=== PATIENT | female | born 1945 | race African-American/Black ===

== ENCOUNTER 2016-08-11 14:37 | Emergency (ER) | payer OTHER ==
[2016-08-11 14:48] VITALS: BP 140/99; TEMP 97.2; BMI 29.9
[2016-08-11 15:40] VITALS: PULSE 63
--- NOTE | 2016-08-11 15:54 | PDOC ---
History of Present Illness - General Chief Complaint: Pain, Acute Stated Complaint: SWOLLEN RT LEG/ KNEE PAIN Time Seen by Provider: 08/11/16 14:57 - History of Present Illness Initial Comments: 08/11/16 15:47 CHIEF COMPLAINT: Right knee pain HISTORY OF PRESENT ILLNESS: 71-year-old female with history of hypertension, diabetes, hyperlipidemia, status post Whipple procedure, hip and shoulder replacements, appendectomy, presents to fast track with swelling and pain to right knee and fifth morning. Patient states she saw Dr. Vaz a couple weeks ago and was diagnosed with "fluid in my leg.", She has been taking Aleve for the last 2 days without relief. She denies any chest pain, shortness of breath, palpitations. 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 Denies any recent trauma or injury to the knee. No recent travel or sick contacts. PAST MEDICAL HISTORY: Denies past medical history FAMILY HISTORY: Denies SOCIAL HISTORY: Former smoker, [id number] history. Has not smoked in 16 years. Denies alcohol, illicit drug use. SURGICAL HISTORY: Denies ALLERGIES: Iodine contrast REVIEW OF SYSTEMS General/Constitutional: Denies fever or chills. Denies weakness, weight change. HEENT: Denies change in vision. Denies ear pain or discharge. Denies sore throat. Cardiovascular: Denies chest pain or shortness of breath. Respiratory: Denies cough, wheezing, or hemoptysis. Gastrointestinal: Denies nausea, vomiting, diarrhea or constipation. Denies rectal bleeding. Genitourinary: Denies dysuria, frequency, or change in urination. Musculoskeletal: Right knee swelling and pain. Skin and breasts: Denies rash or easy bruising. Neurologic: Denies headache, vertigo, loss of consciousness, or loss of sensation. PHYSICAL EXAM General Appearance: Well-appearing, appropriately dressed. No apparent distress , no intoxication. HEENT: EOMI, PERRLA, normal ENT inspection, normal voice, TMs normal, pharynx normal. No conjunctival pallor. No photophobia, scleral icterus. Neck: Supple. Trachea midline. No tenderness, rigidity, carotid bruit, stridor , lymphadenopathy, or thyromegaly. Respiratory/Chest: Lungs CTAB. No shortness of breath, chest tenderness, respiratory distress, accessory muscle use. No crackles, rales, rhonchi, stridor , wheezing, dullness Cardiovascular: RRR. S1, S2. No JVD, murmur, bradycardia, tachycardia. Vascular Pulses: Dorsalis-Pedis (R): 2+, Dorsalis-Pedis (L): 2+ Gastrointestinal/Abdominal: Normal bowel sounds. Abdomen soft, non-distended. No tenderness or rebound tenderness. No organomegaly, pulsatile mass, guarding , hernia, hepatomegaly, splenomegaly. Lymphatic: No adenopathy, tenderness. Musculoskeletal/Extremities: Swollen right knee, nontender on palpation. Negative Homans sign. No calf tenderness. Normal inspection. FROM of all extremities, normal capillary refill. Pelvis Stable. No CVA tenderness. No tenderness to extremities, pedal edema, swelling, erythema or deformity. Integumentary: Appropriate color, dry, warm. 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 Fully oriented, alert. Appropriate mood/affect. Motor strength 5/5. No appreciable EOM palsy, facial droop or sensory deficit. Past History - Past Medical History Allergies/Adverse Reactions: Allergies Allergy/AdvReac Type Severity Reaction Status Date / Time Iodinated Contrast Media - Allergy Intermediate Hives Verified 10/13/15 18:18 Oral and Home Medications: Ambulatory Orders Amlodipine Besylate [Norvasc] 10 mg PO DAILY 09/03/11 Lipase/Protease/Amylase [Creon 20 EC Capsule] 2 tab PO TID 09/03/11 Metformin HCl [Glucophage] 850 mg PO BID 09/03/11 Albuterol Sulfate [Proair Hfa -] 1 - 2 inh PO PRN PRN 04/01/13 Metoprolol Tartrate [Lopressor -] 100 mg PO DAILY 04/01/13 Potassium Chloride [Micro-K] 10 meq PO DAILY 04/01/13 Simvastatin [Zocor -] 10 mg PO HS 04/01/13 Vit C/Echin Purp/Herb11 [Vitamin C-Echinacea 500 mg Tab] 1 tab PO DAILY Polyethylene Glycol 3350 [Miralax 255 gm Btl -] 17 gm PO UTDICT #1 bottle Psyllium Husk (with Sugar) [Metamucil Packet] 1 each PO BID #0 packet 04/02/13 Ibuprofen [Motrin -] 800 mg PO PRN PRN 04/24/13 Diclofenac Sodium 25 mg PO TID #21 tablet. 01/10/15 Diclofenac Sodium 50 mg PO BID #14 tablet. 08/11/16 Anemia: No Asthma: No Cancer: No Cardiac Disorders: No CVA: No COPD: No CHF: No Dementia: No Diabetes: Yes (NIDDM) GI Disorders: Yes (PANCREATIC MASS) Disorders: No HTN: Yes Hypercholesterolemia: Yes Liver Disease: No Psychiatric Problems: Yes (DEPRESSION.) Seizures: No Thyroid Disease: No - Surgical History Abdominal Surgery: Yes (WHIPPLE PROCEDURE) Appendectomy: No Cholecystectomy: No Orthopedic Surgery: Yes (left shoulder and r hip, implant) - Psycho/Social/Smoking Cessation Hx Anxiety: No Suicidal Ideation: No Smoking Status: Yes Smoking History: Former smoker Have you smoked in the past 12 months: No Number of Cigarettes Smoked Daily: 0 If you are a former smoker, when did you quit?: 2000 Information on smoking cessation initiated: No Hx Alcohol Use: No (2) Drug/Substance Use Hx: No Substance Use Type: Alcohol Hx Substance Use Treatment: No *Physical Exam - Vital Signs Last Vital Signs Temp Pulse Resp BP Pulse Ox 97.2 F L 63 20 140/99 96 08/11/16 14:45 08/11/16 15:40 08/11/16 14:45 08/11/16 14:45 08/11/16 14:45 Medical Decision Making - Medical Decision Making 08/11/16 15:52 71-year-old female with history of hypertension, diabetes, hyperlipidemia, status post Whipple procedure, hip and shoulder replacements, appendectomy, presents to fast track with swelling and pain to right knee and fifth morning. DVT considered but unlikely given stable VS, absence of tenderness to affected leg, an recent negative US study. Will manage pain and have patient f/u with ortho on Saturday. -Diclofenac 50 mg BID x 7 days Advised patient to take medication as prescribed and follow up with Dr. Vaz next week. Advised patient of signs and symptoms for return to ED. Patient verbalized understanding and agrees to plan. *DC/Admit/Observation/Transfer Diagnosis at time of Disposition: Knee pain Qualifiers: Laterality: right Chronicity: chronic Qualified Code(s): M25.561 - Pain in right knee; G89.29 - Other chronic pain - Discharge Dispostion Disposition: HOME Condition at time of disposition: Stable Admit: No - Prescriptions Prescriptions: Diclofenac Sodium 50 mg PO BID #14 tablet.dr - Referrals Referrals: Jessica Graham [Primary Care Provider] - Teo Vaz MD [Staff Physician] - - Patient Instructions Printed Discharge Instructions: DI for Knee Pain Additional Instructions: Based take medication as prescribed and follow-up with Dr. Vaz on Saturday. If you develop any chest pain, shortness of breath, palpitations, fever, nausea, vomiting, diarrhea, or any new or worsening symptoms, please return to the
[2016-08-11] MEDS ORDERED: KETOROLAC TROMETHAMINE 30 MG/1 ML VIAL IM ONE (15:57)
[2016-08-11] MEDS ORDERED: KETOROLAC TROMETHAMINE 30 MG/1 ML VIAL ONE (16:02)
== END 2016-08-11 16:11 | disposition home or self-care (01) ==
LOC: JERFT 14:37
PROC: 3E0233Z Introduction of Anti-inflammatory into Muscle, Percutaneous Approach (ICD-10-PCS; principal; 2016-08-11)
DX: M25.561 Pain in right knee (principal); G89.29 Other chronic pain; I10 Essential (primary) hypertension; E11.9 Type 2 diabetes mellitus without complications; Z79.84 Long term (current) use of oral hypoglycemic drugs; E78.00 Pure hypercholesterolemia, unspecified; F32.9 Major depressive disorder, single episode, unspecified
CPT/HCPCS: 96372; 99281-25

== ENCOUNTER → 2016-10-26 | Emergency (ER) | payer OTHER ==
[~2016-10-26] MED LIST: ACETAMINOPHEN 1000 MG/100 ML VIAL (NON FORMULARY) IVPB ONE; ACETAMINOPHEN INJECTION 100 ML IVPB ONE; CEPHALEXIN MONOHYDRATE 250 MG CAPSULE (FP) ONE; CEPHALEXIN MONOHYDRATE 500 MG CAPSULE (UD) PO ONE; METHOCARBAMOL 500 MG TABLET ONE; METHOCARBAMOL 500 MG TABLET PO ONE; methylPREDNISolone NA SUCC 125 MG/2 ML VIAL IVPB ONE; methylPREDNISolone NA SUCC 125 MG/2 ML VIAL ONE; morphine CARPU-JECT 4 MG/1 ML DISP.SYRIN IVPUSH ONE; morphine CARPU-JECT 4 MG/1 ML DISP.SYRIN ONE
[2016-10-26 12:46] VITALS: BMI 29.2
--- NOTE | 2016-10-26 15:01 | PDOC ---
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 No trauma, strenuous activity. Patient states that she has been experiencing constant lower abdominal pain, left lower quadrant greater than the right lower quadrant. She describes her symptoms as a discomfort with a rated 8/10 in severity when exacerbated. She notes that her discomfort is worse when lying flat and mildly alleviated when standing. Her discomfort is not exacerbated when eating meals. She took Ibuprofen which did not provide much relief. She also note abdominal pain wraps around her bilateral lower back and notes intermittent sensations of "pins and needles" Her pain does not radiate to her extremities. No unsteady gait, saddle anesthesia. She also admits to loss of appetite and admits that after a long hiatus from occasionally drinking, she started drinking 2 cans of beer recently - [employer]. She denies nausea, vomiting, diarrhea, dysuria, hematuria, urinary frequency and urgency, flank pain. She denies fever, chills, diaphoresis , generalized weakness. She denies chest pain, shortness of breath, cough Allergies: Iodinated Contrast Media- Oral and Intravenously (Rash) Past Surgical History: Whipple Procedure. Appendectomy. Hip/Shoulder replacements. Social History: Former smoker. No EtOH and recreational drug use. Primary Care Physician: Dr. Jessica Graham <Karissa Rowe - Last Filed: 10/26/16 15:17> - General History Source: Patient Exam Limitations: No Limitations <Shahrzad Centeno - Last Filed: 10/28/16 01:06> - General Chief Complaint: Pain Stated Complaint: PAIN Time Seen by Provider: 10/26/16 14:28 Past History <Karissa Rowe - Last Filed: 10/26/16 15:17> - Past Medical History Anemia: No Asthma: No Cancer: No Cardiac Disorders: No CVA: No COPD: No CHF: No Dementia: No Diabetes: Yes (NIDDM) GI Disorders: Yes (PANCREATIC MASS) Disorders: No HTN: Yes Hypercholesterolemia: Yes Liver Disease: No Psychiatric Problems: Yes (DEPRESSION.) Seizures: No Thyroid Disease: No - Surgical History Abdominal Surgery: Yes (WHIPPLE PROCEDURE) Appendectomy: Yes Cholecystectomy: No Orthopedic Surgery: Yes (left shoulder and r hip, implant) - Psycho/Social/Smoking Cessation Hx Anxiety: No Suicidal Ideation: No Smoking Status: Yes Smoking History: Never smoked Have you smoked in the past 12 months: No Number of Cigarettes Smoked Daily: 0 If you are a former smoker, when did you quit?: 2000 Information on smoking cessation initiated: No Hx Alcohol Use: No Drug/Substance Use Hx: No Substance Use Type: Alcohol Hx Substance Use Treatment: No <Shahrzad Centeno - Last Filed: 10/28/16 01:06> - Past Medical History Allergies/Adverse Reactions: Allergies Allergy/AdvReac Type Severity Reaction Status Date / Time Iodinated Contrast Media - Allergy Intermediate Hives Verified 10/26/16 12:42 Oral and morphine Allergy Intermediate Swelling Verified 10/26/16 21:03 Home Medications: Ambulatory Orders Amlodipine Besylate [Norvasc] 10 mg PO DAILY 09/03/11 Lipase/Protease/Amylase [Creon 20 EC Capsule] 2 tab PO TID 09/03/11 Metformin HCl [Glucophage] 850 mg PO BID 09/03/11 Albuterol Sulfate [Proair Hfa -] 1 - 2 inh PO PRN PRN 04/01/13 Metoprolol Tartrate [Lopressor -] 100 mg PO DAILY 04/01/13 Potassium Chloride [Micro-K] 10 meq PO DAILY 04/01/13 Simvastatin [Zocor -] 10 mg PO HS 04/01/13 Vit C/Echin Purp/Herb11 [Vitamin C-Echinacea 500 mg Tab] 1 tab PO DAILY Polyethylene Glycol 3350 [Miralax 255 gm Btl -] 17 gm PO UTDICT #1 bottle Psyllium Husk (with Sugar) [Metamucil Packet] 1 each PO BID #0 packet 04/02/13 Ibuprofen [Motrin -] 800 mg PO PRN PRN 04/24/13 Cephalexin [Keflex] 500 mg PO BID #14 capsule 10/26/16 Review of Systems - Review of Systems Comments:: 10/26/16 15:17 GENERAL/CONSTITUTIONAL: No: fever, chills, weakness, loss of appetite. HEAD, EYES, EARS, NOSE AND THROAT: No: change in vision, ear pain, discharge, sore throat, throat swelling. CARDIOVASCULAR: No: chest pain, lightheadedness, palpitations, syncope RESPIRATORY: No: cough, shortness of breath, wheezing, hemoptysis, stridor. GASTROINTESTINAL: Yes: Lower abdominal pain. No: nausea, vomiting, abdominal cramping, diarrhea, rectal bleeding, constipation. GENITOURINARY: No: dysuria, hematuria, frequency, urgency, flank pain. MUSCULOSKELETAL: No: back pain, neck pain, joint pain, muscle swelling or pain SKIN AND BREASTS: No: lesions, pallor, rash or easy bruising. NEUROLOGIC: Yes: Intermittent lower back pins and needles sensations. No: headache, vertigo, weakness ENDOCRINE: No: unexplained weight gain or loss HEMATOLOGIC/LYMPHATIC: No: anemia, easy bleeding, swelling nodes <Karissa Rowe - Last Filed: 10/26/16 15:17> *Physical Exam - Vital Signs Last Vital Signs Temp Pulse Resp BP Pulse Ox 98.0 F 85 18 157/106 100 10/26/16 12:43 10/26/16 12:43 10/26/16 12:43 10/26/16 12:43 10/26/16 12:43 - Physical Exam Comments: 10/26/16 15:17 GENERAL: The patient is in no acute distress. HEAD: Normal with no signs of trauma. EYES: PERRLA, EOMI, sclera anicteric, conjunctiva clear. ENT: Ears normal, nares patent, oropharynx clear without exudates. Moist mucous membranes. NECK: Normal range of motion, supple without lymphadenopathy, JVD, or masses. LUNGS: Breath sounds equal, clear to auscultation bilaterally. No wheezes, and no crackles. HEART:Regular rate and rhythm, normal S1 and S2 without murmur, rub or gallop. ABDOMEN: Soft, bilateral lower abdominal reproducible discomfort to palpation left greater than right. Normoactive bowel sounds. No guarding, no rebound. EXTREMITIES: Normal range of motion, no edema. No clubbing or cyanosis. No erythema, or tenderness. NEUROLOGICAL: Cranial nerves II through XII grossly intact. Normal speech. No focal neurological deficits. MUSCULOSKELETAL: Back non-tender to palpation, no CVA tenderness SKIN: Warm, Dry, normal turgor, no rashes or lesions noted. <JaeKarissa - Last Filed: 10/26/16 15:17> - Vital Signs Last Vital Signs Temp Pulse Resp BP Pulse Ox 98.0 F 85 18 157/106 100 10/26/16 12:43 10/26/16 12:43 10/26/16 12:43 10/26/16 12:43 10/26/16 12:43 <Shahrzad Centeno - Last Filed: 10/28/16 01:06> ED Treatment Course - LABORATORY CBC & Chemistry Diagram: 10/26/16 15:36 10/26/16 18:48 - RADIOLOGY Radiology Studies Ordered: Category Date Time Status ABDOMEN & PELVIS CT W/O CONTR [CT] Stat CT Scan 10/26/16 14:59 Ordered <Shahrzad Centeno - Last Filed: 10/28/16 01:06> Medical Decision Making - Medical Decision Making 10/26/16 15:01 A portion of this note was documented by scribe services under my direction. I have reviewed the details of the note, within reason, and agree with the documentation with the following case summary and management plan written by me. Nursing documentation reviewed and incorporated into medical decision making 10/26/16 15:32 This pt is a 71 yo M h/o HTN, HLD, DM, pancreatic mass s/p Whipple procedure ( 10 years ago) Presents to the ER with > 1 week of lower abdominal pain which radiates to the Back She notes that her pain began last weekend, she thought it would go away but it has not No direct trauma No heavy lifting (that she can recall) She denies fevers or chills She has not had symptoms like this in the past No bowel or bladder incontinence She can not tell if her pain is starting in her lower abdomen or her back she notes that pain is worse with movement of any kind No diarrhea No dysuria On examination Lower abdominal tenderness, left > right No midline tenderness Right CVA tenderness Straight leg raise negative DD: Intra-abdominal pathology (diverticulitis, colitis, abscess), kidney stone, pyelonephtitis, musculoskeletal pain Will do: Labs CT non contrast (pt has allergy to contrast) Morphine for pain Pt signed out to Dr. Haywood <Shahrzad Centeno - Last Filed: 10/28/16 01:06> *DC/Admit/Observation/Transfer - Attestations Scribe Attestion: 10/26/16 15:17 Documentation prepared by Karissa Rowe, acting as biomedical engineering aide for Shahrzad Centeno MD. <Karissa Rowe - Last Filed: 10/26/16 15:17> <Shahrzad Centeno - Last Filed: 10/28/16 01:06> Diagnosis at time of Disposition: Cystitis - Discharge Dispostion Disposition: HOME Condition at time of disposition: Stable - Prescriptions Prescriptions: Cephalexin [Keflex] 500 mg PO BID #14 capsule - Referrals Referrals: Jessica Graham [Primary Care Provider] - - Patient Instructions Printed Discharge Instructions: DI for Acute Cystitis Additional Instructions: Please take 650 mg tylenol every 4 hours as needed for pain. Take 500 mg keflex every 12 hours for the next week. Please make an appointment with your doctor.
[2016-10-26 16:34] LABS: BASOPHIL 0.8 % (0-2.0); EOSINOPHIL 1.3 % (0-4.5); MCH 29.5 pg (25.7-33.7); MCHC 32.1 g/dl (32.0-36.0); MEAN CELL VOLUME 91.9 fl (80-96); NEUTROPHILS 56.5 % (42.8-82.8); PLATELET COUNT 214 K/MM3 (134-434); WHITE BLOOD COUNT 8.2 K/mm3 (4.0-10.0)
[2016-10-26 18:48] VITALS: BP 141/85; PULSE 80; TEMP 98.2
[2016-10-26 19:53] LABS: ALBUMIN 3.8 g/dl (3.4-5.0); ANION GAP 9 (8-16); BILIRUBIN,TOTAL 0.7 mg/dL (0.2-1.0); CALCIUM 9.2 mg/dL (8.5-10.1); CO2 29 mmol/L (21-32); COCKROFT - GAULT 84.5665; CREATININE 0.7 mg/dL (0.55-1.02); GLUCOSE,RANDOM 118 mg/dL (74-106); SGOT/AST 26 U/L (15-37); SGPT/ALT 30 U/L (12-78)
[2016-10-26 19:54] LABS: ALK PHOS 157 U/L (45-117); TOT PROT 7.8 g/dl (6.4-8.2)
[2016-10-26 20:19] LABS: URINE APPEARANCE CLEAR; URINE BILIRUBIN NEGATIVE (NEGATIVE); URINE BLOOD NEGATIVE (NEGATIVE); URINE COLOR STRAW; URINE GLUCOSE (UA) NEGATIVE (NEGATIVE); URINE KETONE NEGATIVE (NEGATIVE); URINE NITRITE NEGATIVE (NEGATIVE); URINE PROTEIN NEGATIVE (NEGATIVE); URINE UROBILINOGEN NEGATIVE E.U./dl (0.2-1.0)
[2016-10-26 20:24] LABS: URINE LEUK ESTERASE 1+ (NEGATIVE)
[2016-10-26 20:44] LABS: URINE MUCUS RARE; URINE RBC <1 /hpf (0-3); URINE WBC 4 /hpf (3-5)
--- NOTE | 2016-10-26 20:56 | PDOC ---
*Physical Exam - Vital Signs Last Vital Signs Temp Pulse Resp BP Pulse Ox 98.2 F 80 16 141/85 97 10/26/16 18:47 10/26/16 18:47 10/26/16 18:47 10/26/16 18:47 10/26/16 18:47 ED Treatment Course - LABORATORY CBC & Chemistry Diagram: 10/26/16 15:36 10/26/16 18:48 - ADDITIONAL ORDERS Additional order review: Laboratory Results 10/26/16 10/26/16 10/26/16 19:20 18:48 16:30 Sodium 139 Cancelled Potassium 3.4 L Cancelled Chloride 101 Cancelled Carbon Dioxide 29 Cancelled Anion Gap 9 Cancelled BUN 11 D Cancelled Creatinine 0.7 Cancelled Creat Clearance w eGFR > 60 Cancelled Random Glucose 118 H D Cancelled Calcium 9.2 Cancelled Total Bilirubin 0.7 Cancelled AST 26 Cancelled ALT 30 Cancelled Alkaline Phosphatase 157 H Cancelled Total Protein 7.8 Cancelled Albumin 3.8 Cancelled Lipase 65 L Urine Color Straw Urine Appearance Clear Urine pH 6.0 Urine Protein Negative Urine Glucose (UA) Negative Urine Ketones Negative Urine Blood Negative Urine Nitrite Negative Urine Bilirubin Negative Urine Urobilinogen Negative Ur Leukocyte Esterase 1+ H D 10/26/16 16:05 Sodium Cancelled Potassium Cancelled Chloride Cancelled Carbon Dioxide Cancelled Anion Gap Cancelled BUN Cancelled Creatinine Cancelled Creat Clearance w eGFR Cancelled Random Glucose Cancelled Calcium Cancelled Total Bilirubin Cancelled AST Cancelled ALT Cancelled Alkaline Phosphatase Cancelled Total Protein Cancelled Albumin Cancelled Lipase Urine Color Urine Appearance Urine pH Urine Protein Urine Glucose (UA) Urine Ketones Urine Blood Urine Nitrite Urine Bilirubin Urine Urobilinogen Ur Leukocyte Esterase 10/26/16 15:36 RBC 4.51 MCV 91.9 MCHC 32.1 RDW 15.0 MPV 9.0 Neutrophils % 56.5 Lymphocytes % 34.4 Monocytes % 7.0 Eosinophils % 1.3 Basophils % 0.8 - Medications Given in the ED: ED Medications Discontinued Medications Generic Name Dose Route Start Last Admin Trade Name Freq PRN Reason Stop Dose Admin Acetaminophen 1,000 mg 10/26/16 16:45 10/26/16 17:42 Ofirmev Injection - IVPB 10/26/16 16:46 1,000 mg ONCE ONE Administration Diphenhydramine HCl 25 mg 10/26/16 16:09 10/26/16 16:15 Benadryl Injection - IVPB 10/26/16 16:10 25 mg ONCE ONE Administration Methocarbamol 500 mg 10/26/16 15:02 10/26/16 15:42 Robaxin - PO 10/26/16 15:03 500 mg ONCE ONE Administration Methylprednisolone Sodium Succinate 125 mg 10/26/16 16:58 10/26/16 17:41 Solu-Medrol - IVPB 10/26/16 16:59 125 mg ONCE ONE Administration Morphine Sulfate 4 mg 10/26/16 15:01 10/26/16 16:07 Morphine Injection - IVPUSH 10/26/16 15:02 4 mg ONCE ONE Administration Medical Decision Making - Medical Decision Making 10/26/16 20:50 Sign-out received from outgoing Emergency Physician Dr. Centeno Pt interviewed and examined Ancillary studies reviewed Case discussed in detail with oncoming Emergency Physician including history, physical exam and ancillary studies. CBC, BMP 10/26/16 15:36 10/26/16 18:48 CMP Sodium 139 mmol/L (136-145) 10/26/16 18:48 Potassium 3.4 mmol/L (3.5-5.1) L 10/26/16 18:48 Chloride 101 mmol/L (98-107) 10/26/16 18:48 Carbon Dioxide 29 mmol/L (21-32) 10/26/16 18:48 Anion Gap 9 (8-16) 10/26/16 18:48 BUN 11 mg/dL (7-18) D 10/26/16 18:48 Creatinine 0.7 mg/dL (0.55-1.02) 10/26/16 18:48 Creat Clearance w eGFR > 60 (>60) 10/26/16 18:48 Random Glucose 118 mg/dL (74-106) H D 10/26/16 18:48 Calcium 9.2 mg/dL (8.5-10.1) 10/26/16 18:48 Total Bilirubin 0.7 mg/dL (0.2-1.0) 10/26/16 18:48 AST 26 U/L (15-37) 10/26/16 18:48 ALT 30 U/L (12-78) 10/26/16 18:48 Alkaline Phosphatase 157 U/L (45-117) H 10/26/16 18:48 Total Protein 7.8 g/dl (6.4-8.2) 10/26/16 18:48 Albumin 3.8 g/dl (3.4-5.0) 10/26/16 18:48 Lipase 65 U/L (73-393) L 10/26/16 18:48 Urine Test Results Urine Color Straw 10/26/16 19:20 Urine Appearance Clear 10/26/16 19:20 Urine pH 6.0 (5.0-8.0) 10/26/16 19:20 Urine Protein Negative (NEGATIVE) 10/26/16 19:20 Urine Glucose (UA) Negative (NEGATIVE) 10/26/16 19:20 Urine Ketones Negative (NEGATIVE) 10/26/16 19:20 Urine Blood Negative (NEGATIVE) 10/26/16 19:20 Urine Nitrite Negative (NEGATIVE) 10/26/16 19:20 Urine Bilirubin Negative (NEGATIVE) 10/26/16 19:20 Ur Leukocyte Esterase 1+ (NEGATIVE) H D 10/26/16 19:[address] reviewed. Limited but no acute findings. Pt had some itching after morphine. Was given benadryl and solu-medrol. Will list as allergic reaction. UA positive. After speaking with the patient, will treat as cystitis. Microbiology reviewed. Will treat with keflex. I discussed the physical exam findings, ancillary test results and final diagnoses with the patient. I answered all of the patient's questions. The patient was satisfied with the care received and felt comfortable with the discharge plan and treatment plan. The patient will call their primary care physician within 24 hours to arrange follow-up and will return to the Emergency Department with any new, persistant or worsening symptoms. 10/26/16 20:53 *DC/Admit/Observation/Transfer Diagnosis at time of Disposition: Cystitis - Discharge Dispostion Disposition: HOME Condition at time of disposition: Stable Admit: No - Prescriptions Prescriptions: Cephalexin [Keflex] 500 mg PO BID #14 capsule - Referrals Referrals: Jessica Graham [Primary Care Provider] - - Patient Instructions Printed Discharge Instructions: DI for Acute Cystitis Additional Instructions: Please take 650 mg tylenol every 4 hours as needed for pain. Take 500 mg keflex every 12 hours for the next week. Please make an appointment with your doctor. - Post Discharge Activity
== END | disposition home or self-care (01) ==
LOC: JER 12:39
PROC: 3E033NZ Introduction of Analgesics, Hypnotics, Sedatives into Peripheral Vein, Percutaneous Approach (ICD-10-PCS; principal; 2016-10-26)
PROC: 3E0333Z Introduction of Anti-inflammatory into Peripheral Vein, Percutaneous Approach (ICD-10-PCS; 2016-10-26)
PROC: 3E033GC Introduction of Other Therapeutic Substance into Peripheral Vein, Percutaneous Approach (ICD-10-PCS; 2016-10-26)
PROC: 3E033NZ Introduction of Analgesics, Hypnotics, Sedatives into Peripheral Vein, Percutaneous Approach (ICD-10-PCS; 2016-10-26)
DX: N30.00 Acute cystitis without hematuria (principal)
CPT/HCPCS: 36415; 74176-TC; 80053; 81003; 81015; 83690; 85025; 87086; 96374; 96375; 99283-25

== ENCOUNTER 2021-08-22 14:25 | Inpatient (IN) | payer OTHER ==
[2021-08-22] MEDS ORDERED: PSYLLIUM 5.85 GM PACKET PO PRN (15:22)
[2021-08-22] MEDS ORDERED: ALBUTEROL SO4 HFA INHALER IH PRN (15:22)
[2021-08-22] MEDS ORDERED: POLYETHYLENE GLYCOL (HEALTHYLAX) 3350 17 GM PACKET PO PRN (15:22)
[2021-08-22] MEDS ORDERED: SODIUM CHLORIDE 1,000 ML IV SCH (15:45)
[2021-08-22 17:10] LABS: INR 1.12 (0.83-1.09); PROTHROMBIN TIME (PATIENT) 12.9 SEC (9.7-13.0)
[2021-08-22 17:12] LABS: ACTIVATED PTT 26.2 SECONDS (25.2-36.5)
[2021-08-22] MEDS ORDERED: metFORMIN HCL 500 MG TABLET (FP) ONE (18:09)
[2021-08-22] MEDS ORDERED: PANTOPRAZOLE SODIUM 40 MG VIAL ONE (21:31)
[2021-08-22] MEDS ORDERED: ATORVASTATIN CA 10 MG TABLET (FP) ONE (21:31)
[2021-08-22] MEDS ORDERED: PANTOPRAZOLE SODIUM 40 MG VIAL IVPUSH SCH (22:00)
[2021-08-22] MEDS ORDERED: ATORVASTATIN CA 10 MG TABLET (FP) PO SCH (22:00)
[2021-08-22] MEDS ORDERED: PANTOPRAZOLE SODIUM 40 MG in SODIUM CHLORIDE 100 ML IVPUSH SCH (22:00)
[2021-08-23 02:34] VITALS: BMI 26.2
[2021-08-23 08:07] LABS: HEMATOCRIT 22.9 % (32.4-45.2); HEMOGLOBIN 7.6 GM/dL (10.7-15.3); MCH 28.5 pg (25.7-33.7); MEAN CELL VOLUME 86.4 fl (80-96); MEAN PLT VOLUME 7.6 fl (7.5-11.1); PLATELET COUNT 312 10^3/uL (134-434); RBC 2.65 M/mm3 (3.60-5.2); RDW 18.7 % (11.6-15.6); WHITE BLOOD COUNT 7.6 K/mm3 (4.0-10.0)
[2021-08-23] MEDS ORDERED: FERROUS SO4 325 MG TABLET (FP) PO SCH (10:00)
[2021-08-23] MEDS ORDERED: POTASSIUM CHLORIDE TABS 10 MEQ TABLET.ER (FP) PO SCH (10:00)
[2021-08-23] MEDS ORDERED: MULTIVITAMINS (DAILY MVI) TABLET (FP) PO SCH (10:00)
[2021-08-23] MEDS ORDERED: FAMOTIDINE 20 MG TABLET PO SCH (10:00)
[2021-08-23] MEDS ORDERED: PANTOPRAZOLE 40 MG TABLET PO SCH (10:00)
[2021-08-23] MEDS ORDERED: amLODIPine BESYLATE 10 MG TABLET (FP) PO SCH (10:00)
[2021-08-23] MEDS ORDERED: METOPROLOL TARTRATE 50 MG TABLET (FP) PO SCH (10:00)
[2021-08-23 11:10] LABS: SARS-CoV-2 NAA Not Detected (Not Detected)
[2021-08-23 12:04] VITALS: BP 142/78; PULSE 64; TEMP 98.1
[2021-08-23] MEDS: AMYLASE PO SCH ×2 (13:39→13:40)
[2021-08-23] MEDS: PROTEASE PO SCH ×2 (13:39→13:40)
[2021-08-23] MEDS: LIPASE PO SCH ×2 (13:39→13:40)
[2021-08-23] MEDS: [UNRECOGNIZED DRUG - OTHER] PO SCH ×2 (13:39→13:40)
== END 2021-08-23 13:08 | disposition home or self-care (01) | DRG 378 ==
LOC: JER 14:25 → JERBED 15:23 → OBSVTOIN 15:24 → J5S 23:27
PROVIDERS: ADMIT Internal Medicine; ATTEND Internal Medicine
PROC: 30233N1 Transfusion of Nonautologous Red Blood Cells into Peripheral Vein, Percutaneous Approach (ICD-10-PCS; 2021-08-22)
PROC: 0DJ08ZZ Inspection of Upper Intestinal Tract, Via Natural or Artificial Opening Endoscopic (ICD-10-PCS; principal; 2021-08-23 07:30)
DX: K92.2 Gastrointestinal hemorrhage, unspecified (principal); D62 Acute posthemorrhagic anemia; I10 Essential (primary) hypertension; E11.9 Type 2 diabetes mellitus without complications; E78.5 Hyperlipidemia, unspecified; I25.10 Atherosclerotic heart disease of native coronary artery without angina pectoris; K57.90 Diverticulosis of intestine, part unspecified, without perforation or abscess without bleeding; M19.90 Unspecified osteoarthritis, unspecified site
CPT/HCPCS: 36415; 36430; 71045-TC-FY; 80053; 80061; 82272; 82550; 82962; 83036; 84443; 84484; 85025; 85027; 85610; 85730; 86850; 86900; 86901; 86922; 93005; 93010; 99285-25; C9803-CS; G0378; P9058; U0003; U0005

== ENCOUNTER 2024-10-16 06:22 | Day surgery (SDC) | payer OTHER ==
[2024-10-14 12:58] VITALS: BMI 26.2
[2024-10-16 09:24] VITALS: RESP 20
[2024-10-16] MEDS: IOHEXOL 180 MG/1 ML ML IJ ONE (09:42)
[2024-10-16] MEDS: LIDOCAINE HCL 1% PRESERVATIVE FREE - 30ML VIAL IJ ONE ×2 (09:42)
[2024-10-16] MEDS ORDERED: LIDOCAINE HCL/PF 1% SDV 5ML VIAL ONE (09:42)
[2024-10-16] MEDS: DEXAMETHASONE SOD PHOSPHATE 10 MG/1 ML VIAL IVPUSH ONE (09:44)
[2024-10-16 10:23] VITALS: BP 146/84; PULSE 65; TEMP 98.1
== END 2024-10-16 10:29 | disposition home or self-care (01) ==
LOC: JASU-SURG 06:22
PROVIDERS: ATTEND Pain Medicine Pain Medicine
PROC: 3E0R3BZ Introduction of Anesthetic Agent into Spinal Canal, Percutaneous Approach (ICD-10-PCS; 2024-10-16)
PROC: 3E0R33Z Introduction of Anti-inflammatory into Spinal Canal, Percutaneous Approach (ICD-10-PCS; principal; 2024-10-16 10:00)
DX: M48.061 Spinal stenosis, lumbar region without neurogenic claudication (principal); M54.16 Radiculopathy, lumbar region
CPT/HCPCS: 76000-TC-FY; J1100

== ENCOUNTER 2025-03-26 12:53 | Emergency (ER) | payer OTHER ==
[2025-03-26 13:04] VITALS: TEMP 98.1; BMI 26.5
[2025-03-26 14:14] LABS: ABSOLUTE IMMATURE GRANULOCYTES 0.03 x10^3/uL (0.0-0.031); BASOPHILS # 0.03 x10^3/uL (0.01-0.08); EOSINOPHIL % 1.7 % (0.7-5.8); EOSINOPHILS # 0.12 x10^3/uL (0.04-0.36); MCHC 31.5 g/dl (32.2-35.5); MEAN CELL VOLUME 96.8 fl (79.4-94.8); MEAN PLT VOLUME 10.4 fl (9.4-12.3); MONOCYTE # 0.74 x10^3/uL (0.24-0.86); MONOCYTE % 10.2 % (4.7-12.5); RDW 14.0 % (12.5-17.0)
[2025-03-26 14:39] LABS: GLUCOSE,RANDOM 104.0 mg/dL (74-106); TOT PROT 7.8 g/dl (6.4-8.2)
[2025-03-26 14:40] LABS: CO2 25.0 mmol/L (21-32)
[2025-03-26 14:42] LABS: ALK PHOS 128.0 U/L (40-150)
[2025-03-26 14:45] LABS: CREATININE 0.93 mg/dL (0.55-1.3); SGOT/AST 25.0 U/L (5-34); SGPT/ALT 13.0 U/L (0-55)
[2025-03-26 19:33] VITALS: BP 129/77; PULSE 67; RESP 20
== END 2025-03-26 19:33 | disposition home or self-care (01) ==
LOC: JER 12:53
DX: S99.912A Unspecified injury of left ankle, initial encounter (principal); L03.116 Cellulitis of left lower limb; X58.XXXA Exposure to other specified factors, initial encounter
CPT/HCPCS: 36415; 73610-TC-LT-FY; 73630-TC-LT; 76882-TC-LT; 80053; 85025; 85651; 86140; 99284-25